=== PATIENT | female | born 1940 | race Caucasian/White ===

== ENCOUNTER 2017-03-19 14:09 | Emergency (ER) | payer MEDICARE, BC ==
[2017-03-19 14:23] VITALS: BP 150/73
[2017-03-19] MEDS ORDERED: TETRACAINE HCL 150 DROP BTL ONE (15:28)
--- OUTSIDE RECORDS SUMMARY | 2017-03-19 15:41 | XMS REPORT | Continuity of Care Document ---
:1940 Author Organization [facility] ([facility]) Address [address] [place] [address] Phone [phone] Care Team Providers Name Role Phone Arin Ann Primary Care Provider [phone] Source Comments This disclosure is being made pursuant to the Care Everywhere program, applicable federal and state laws, and may not contain all informaitonavailable regarding this patient.[facility] ([facility]) Active Allergies and Adverse Reactions Allergen Noted Date Severity Reactions Comments No Known Allergies 08/04/2013 NO REACTION Current Medications Prescription Sig. Disp. Refills Start Date End Date Status citalopram 40 mg Take 40 mg by mouth Active tablet daily. levothyroxine 75 mcg Take 75 mcg by mouth Active tablet every morning before breakfast. methotrexate 2.5 mg Take 15 mg by mouth Active tablet every week. travoprost (TRAVATAN instill 1 Drop onto Active Z) 0.004 % ophthalmic both eyes every solution evening. mirabegron (MYRBETRIQ) Take 1 Tab by mouth 30 Tab 11 08/10/2013 Active 50 mg XR tablet daily. Indications: BLADDER HYPERACTIVITY Active Problems Problem Noted Date Mixed stress and urge urinary incontinence 08/10/2013 Urinary urgency 08/10/2013 Urinary frequency 08/10/2013 Psoriasis 08/10/2013 Hypothyroid 08/10/2013 Depression 08/10/2013 Glaucoma 08/10/2013 Overview: Pt uncertain if open or closed angle Social History Tobacco Use Types Packs/Day Years Used Date Current Every Day Smoker Cigarettes 0.75 35 Smokeless Tobacco: Never Used Alcohol Use Drinks/Week oz/Week Comments Yes Last Filed Vital Signs Vital Sign Reading Time Taken Blood Pressure 128/74 08/10/2013 2:37 PM CDT Pulse 68 08/10/2013 2:37 PM CDT Temperature 36.6 C (97.9 F) 08/10/2013 2:37 PM CDT Respiratory Rate 20 08/10/2013 2:37 PM CDT Height 1.702 m (5' 7") 08/10/2013 2:37 PM CDT Weight 73.029 kg (161 lb) 08/10/2013 2:37 PM CDT Body Mass Index 25.21 08/10/2013 2:37 PM CDT Oxygen Saturation 98% 08/10/2013 2:37 PM CDT Plan of Care Health Maintenance Due Date Last Done Comments Hepatitis B Vaccine (1 of 3 - Primary Series) 1940 Tdap Vaccine 1951 Lipid Disorder Screening 1958 Td Vaccine 1958 Mammogram 1980 Colonoscopy 1990 Zoster Vaccine 2000 Osteoporosis Screening (DXA Bone Density) 2005 Pneumococcal Vaccine (1 of 2 - PCV13) 2005 Influenza Vaccine: Seasonal (#1) 06/23/2016 Results from Last 3 Months Not on file
--- NOTE | 2017-03-19 15:56 | ERNOTE ---
ENT HPI Date of Service: 03/19/17 Presenting Symptoms: other - eye redness Time Seen by Provider: 03/19/17 15:22 Source: patient Exam Limitations: no limitations - Immun/Allergies/Home Medications Allergies/Adverse Reactions: Allergies Allergy/AdvReac Type Severity Reaction Status Date / Time No Known Allergies Allergy Verified 03/19/17 14:22 Home Medications: HOME MEDICATIONS Citalopram Hydrobromide [Citalopram HBr] 40 mg PO DAILY 12/25/13 [Last Taken 01/06] Levothyroxine Sodium [Synthroid] 88 mcg PO DAILY 12/25/13 [Last Taken 12/25/13] Mv/FA/Dha/Epa/Coq10/Ca/D3/Cran [Women's Vitapak Combo Pack] 1 each PO DAILY 01/06 [Last Taken 12/25/13] - History of Present Illness Narrative: Patient presents to the ED with a reddened eye. She relates that Thursday she was outside and rubbed her left eye with a glove. She has some discomfort then in the left eye but Thursday morning she noticed there was redness around her left eye. She came in today to have this checked out. No fever. No VELASCO. She denies vision changes. She is on Aspirin. no FB sensation. Severity: Present: mild ENT Location: Present: eye (L) Prearrival Treatment: Present: no prearrival treatment Modifying Factors - Improves: Reports: nothing Modifying Factors - Worsens: Reports: nothing Associated Symptoms - ENT: Denies: fever, sore throat Prior Treament: Denies: recently seen Review of Systems - Review of Systems Constitutional: Absent: fever EYE: Present: see HPI ENT: Present: no symptoms reported - Patient's Past Medical History Patient History - Medical: Depression, Hypothyroidism Patient History - Cardiac/Respiratory: No pertinent hx Patient History - Cancer: No Hx of Cancer Patient History - Surgical Procedures: Cholecystectomy, Hysterectomy, Total Hip Replacement, T & A Patient History - Other: None - Social History Living Situations: home Psych History: Hx of Depression Alcohol Use: none Drug Use: none Physical Exam - Physical Exam General Appearance: Present: alert, no apparent distress Ears, Nose, Throat: Present: normal ENT inspection, other - Subconjunctival hemorrhage left eye. EOMI. Pupils eqyal and reactive. Visual acuity reviewed. Fluoroscein staining shows no clear conjunctival abrasion. I find no secondary complications from her subconjuntival hemorrhage. EOMI. PERRL. No hyphema. No corneal abnormality seen. 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 Vital Signs: Vital Signs 03/19/17 14:17 Temperature 36.7 C Pulse Rate 73 Respiratory 12 Rate Blood Pressure 150/73 O2 Sat by Pulse 98 Oximetry - Progress/Reassessment Chief Complaint: Eye Injury/Trauma Progress Note-Subjective: 03/19/17 15:55 Subconjuntival hemorrhage. No other acute vision or life threats found. She has appt with optho tomorrow. I discussed warning signs and reasons to return as well as the need for close f/u. Departure Clinical Impression: Subconjunctival hemorrhage of left eye - Departure Disposition: Home self-care Condition: Stable Instructions: Subconjunctival Hemorrhage Additional Instructions: Follow up with Dr. Telles with [facility] at [facility] tomorrow on 2:15pm. Avoid exertion, coughing, blowing nose, anything that would increase pressure in your eye. Return for fever, vision changes or if your condition worsens or changes in any way. Referrals: Arin Ann MD [Primary Care Provider] -
== END 2017-03-19 15:45 | disposition home or self-care (01) ==
LOC: ER 14:09
DX: H11.32 Conjunctival hemorrhage, left eye (principal); E03.9 Hypothyroidism, unspecified

== ENCOUNTER 2017-05-24 16:32 | Emergency (ER) | payer MEDICARE, BC ==
--- NOTE | 2017-05-24 17:50 | ERNOTE ---
Lower Extremity HPI - Narrative Date of Service: 05/24/17 - General Lower Extremities Pain: hip: left Time Seen by Provider: 05/24/17 17:05 Source: patient, family, old records Exam Limitations: no limitations - Immun/Allergies/Home Medications Immunizations: IMMUNIZATION HX Immunizations Up to Date Yes History of Influenza Vaccine Yes Allergies/Adverse Reactions: Allergies Allergy/AdvReac Type Severity Reaction Status Date / Time No Known Allergies Allergy Verified 05/24/17 16:48 Home Medications: HOME MEDICATIONS Citalopram Hydrobromide [Citalopram HBr] 40 mg PO DAILY 12/25/13 [Last Taken 01/06] Levothyroxine Sodium [Synthroid] 88 mcg PO DAILY 12/25/13 [Last Taken 12/25/13] Aspirin 81 mg PO DAILY 05/20/17 [Last Taken Unknown] Nabumetone [Relafen] 500 mg PO BID #30 tab 05/23/17 [Last Taken Unknown] HYDROcodone/ACETAMINOPHEN [[place] 5-325] 1 each PO Q3H PRN #20 tablet 05/24/17 [ Last Taken Unknown] - History of Present Illness Narrative: This is a 76-year-old female who comes to the emergency department complaining of low back pain which has been present for several weeks. The patient relates that 2 weeks ago she was spraying weeds and was bent over. The next day she started feeling some stiffness and tightness in her lower back. She saw a chiropractor several times over the next week or so. Her symptoms continue to worsen. She has been seen here in the emergency department and had a lumbar spine x-ray performed was given muscle relaxants as well as pain medicine. The patient states that these things helped briefly but have not fixed the problem. The patient states that she continues to have significant pain and it's getting worse. It gets worse when she tries to stand up. Except the point where she cannot the chair without assistance. She is unable to go to the restroom. She has some radiation of symptoms down the back of both legs just past the knee. It was not going to the ankle. She has no loss of sensation. She has no loss of strength distally. She has not fallen. She is not losing control of her bowel or bladder. The patient denies any urinary symptoms. The patient denies any other complaints such as chest pain cough shortness of breath. Occurred: last week Location of Incident: home Method of Injury: Reports: twisted Review of Systems - Narrative Narrative: Sobieski above the remainder of the review of systems is otherwise negative - Review of Systems Constitutional: Present: no symptoms reported EYE: Present: no symptoms reported ENT: Present: no symptoms reported Respiratory: Present: no symptoms reported Cardiology: Present: no symptoms reported Gastrointestinal/Abdominal: Present: no symptoms reported Genitourinary: Present: no symptoms reported. Absent: frequency, pain, hematuria, decreased urinary output, discharge Musculoskeletal: Present: back pain, joint pain Neurological: Present: no symptoms reported, other - is limited getting out of a chair as she has pain. This is not a strength limitation. Absent: weakness, numbness, tingling Endocrine: Present: no symptoms reported Hematologic/Lymphatic: Present: no symptoms reported Psych: Present: no symptoms reported All Other Systems: All systems neg except as marked - Patient's Past Medical History Patient History - Medical: Chronic Pain, Depression, Hypothyroidism Patient History - Cardiac/Respiratory: No pertinent hx Patient History - Cancer: No Hx of Cancer Patient History - Surgical Procedures: Cholecystectomy, Hysterectomy, T & A, Other, Orthopedic Patient History - Other: None - Social History Living Situations: spouse Psych History: Hx of Depression Smoking Status: Current every day smoker Alcohol Use: occasionally Drug Use: none - Immunizations Immunizations Up to Date: Yes History of Influenza Vaccine: Yes Physical Exam - Physical Exam General Appearance: Present: wd/wn, alert, no apparent distress Eye Exam: Normal inspection: bilateral Ears, Nose, Throat: Present: normal ENT inspection, normal pharynx Neck: Present: normal inspection, nontender Respiratory: Present: no respiratory distress, normal breath sounds, chest nontender Cardiovascular/Chest: Present: regular rate, rhythm, normal peripheral pulses Gastrointestinal/Abdominal: Present: normal bowel sounds, nontender, nondistended, soft, no organomegaly Back Exam: Present: normal inspection, no vertebral tenderness, other - the patient has tenderness to palpation over the right sacroiliac joint. She also has pain over the last left SI joints superiorly. This is the severe pain that she experiences. Extremity Exam: Present: normal inspection, non-tender, normal range of motion, no edema, other - no pain with passive motion. Active motion causes pain Neurological Exam: Present: alert, oriented, normal mood/affect DTR: N=norm/NB=norm/brisk/A=abs/DD=dull/dimin/HC=hyperactive: Knee (R): Normal, Knee (L): Normal Skin Exam: Present: normal color, warm/dry Lymphatic Exam: Present: no adenopathy ED Progress - Results and Orders Patient's Lab Results:: I have reviewed the patient's lab results. - Vital Signs Patient's Vital Signs:: I have reviewed the patient's vital signs. Vital Signs: Vital Signs 05/24/17 16:41 Temperature 36.5 C Pulse Rate 79 Respiratory 16 Rate Blood Pressure 124/74 O2 Sat by Pulse 97 Oximetry - X-Ray X-Ray #1 X-Ray: lumbosacral Interpretation: Interp. by me X-ray Comments: Multilevel degenerative changes no definite fracture X-Ray #2 X-Ray: pelvis Interpretation: Interp. by me X-ray Comments: No obvious fractures are noted0 - Progress/Reassessment Chief Complaint: Lower Extremity Pain/ Injury Progress:: Improved Progress Note-Subjective: 05/24/17 19:24 Still having significant pain but is starting to get better. Plan - Plan Plan: Patient's x-rays do not show anything abnormal or changed from previously. She does have severe degenerative changes. The patient has no signs of neurologic impairment at this time. I discussed with her symptoms of neurologic impairment such as loss of control of bowel or bladder, inability to move legs, numbness or tingling. If any of these occur she will return immediately to the ER. Otherwise she will follow-up with her family doctor next week and get an MRI performed. I made her aware that it will likely take a week of being extremely gentle on her back for to get better. I counseled her to sleep with a pillow between her legs. I am giving her a prescription for 20 tablets of 5 mg Lortab. She may take 1-2 every 6 hours. I am holding off on significant anti-inflammatories at this time. I would suspect that with the injury having occurred more than a week ago there is not a great deal of acute inflammation causing her symptoms. She also is an elderly woman and I do not want to damage her kidneys. Departure Clinical Impression: Low back pain, Lumbar radicular pain, Muscle spasm - Departure Disposition: Home self-care Condition: Stable Additional Instructions: Can take the pain medicine one or 2 tablets every 6 hours. You could take one tablet every [address] operate machinery while taking this medicine. Can make a lightheaded or dizzy, so use care especially when getting up. I want you to sleep with a pillow between her knees. He must call your family doctor on Thursday, tell them you were seen in the ER, and set up a follow- up appointment. He will likely need an MRI of her back. Certainly if you develop new or worrisome symptoms she should return. Return immediately for loss of control of her bowels or bladder. Return immediately for numbness or tingling. He should return immediately if you muscles do not have any strength. This does not mean that it simply hurts to use her muscles but they simply can't use them. Referrals: Arin Ann MD [Primary Care Provider] - Prescriptions: HYDROcodone/ACETAMINOPHEN [[place] 5-325] 1 each PO Q3H PRN #20 tablet PRN Reason: Pain
[2017-05-24 18:10] LABS: Urine Appearance Clear; Urine Bacteria None Seen; Urine Bilirubin Negative (NEGATIVE); Urine Blood Negative /ul (NEGATIVE); Urine Color Yellow; Urine Ketone Negative (NEGATIVE); Urine Nitrite Negative (NEGATIVE); Urine Protein Negative (NEGATIVE); Urine RBC None Seen /hpf (0-5); Urine Urobilinogen Normal (NORMAL); Urine WBC None Seen /hpf (0-5)
[2017-05-24] MEDS ORDERED: HYDROcodone/ACETAMINOPHEN 1 EACH TABLET PO ONE ×2 (18:51→19:39)
[2017-05-24] MEDS ORDERED: HYDROcodone/ACETAMINOPHEN 1 EACH TABLET ONE ×2 (18:52→19:43)
[2017-05-24 21:22] VITALS: BP 123/75
== END 2017-05-24 19:55 | disposition home or self-care (01) ==
LOC: ER 16:32
DX: M54.5 Low back pain (principal); M54.16 Radiculopathy, lumbar region; M62.830 Muscle spasm of back